=== PATIENT | female | born 1985 | race Caucasian/White ===

== ENCOUNTER 2022-02-17 16:09 | Emergency (ER) | payer MEDICAID | END 2022-02-17 18:01 | disposition home or self-care (01) | LOC: DL.ED 16:09 | DX: S66.912A Strain of unspecified muscle, fascia and tendon at wrist and hand level, left hand, initial encounter (principal); Z86.16 Personal history of COVID-19; X50.9XXA Other and unspecified overexertion or strenuous movements or postures, initial encounter | CPT/HCPCS: 73100-LT; 99283 ==

== ENCOUNTER 2023-05-17 12:05 | Emergency (ER) | payer MEDICAID ==
[2023-05-17] MEDS: Dexamethasone 4 MG/ML SDV IM ONE (12:33)
== END 2023-05-17 12:55 | disposition home or self-care (01) ==
LOC: DL.ED 12:05
DX: M54.6 Pain in thoracic spine (principal); Z86.16 Personal history of COVID-19
CPT/HCPCS: 96372; 99282; 99283; J1100